=== PATIENT | female | born 1960 | race Caucasian/White ===

== ENCOUNTER → 2018-09-04 | Outpatient (CLI) | payer OTHER ==
[~2018-09-04] MED LIST: AMBIEN10 M1 PO; AUGMENTIN 875 M1 TAB PO; BETASERON 0.3 M1 KIT MR; CARISOPRODOL350 MG PO; CLARITIN10 MG PO; CYMBALTA60 M1 PO; EXCEDRIN 250 MG1 TA1 PO; FLONASE0.05 MG/AC NS; LORATADINE10 M1 PO; MEDROL DOSEPAK4 MG PO; PERCOCET 325 MG1 TA5 PO; PROVIGIL100 MG PO; ROBAXIN750 MG PO; SINGULAIR10 MG PO; SYMBICORT1 AE1 IH; VALIUM10 MG PO; VENTOLIN H0.09 MG/AC IH; [UNRECOGNIZED DRUG - OTHER] PO
== END | disposition home or self-care (01) ==
LOC: RESCLI 01:37
DX: J44.9 Chronic obstructive pulmonary disease, unspecified (principal); G35 Multiple sclerosis; G89.4 Chronic pain syndrome; K21.9 Gastro-esophageal reflux disease without esophagitis; F17.210 Nicotine dependence, cigarettes, uncomplicated; Z71.6 Tobacco abuse counseling; Z76.89 Persons encountering health services in other specified circumstances; Z88.8 Allergy status to other drugs, medicaments and biological substances; Z79.899 Other long term (current) drug therapy

== ENCOUNTER 2018-09-30 14:52 | Emergency (ER) | payer OTHER ==
[~2018-09-30] VITALS: Ht 170.1 cm; Wt 54.4 kg
== END 2018-09-30 16:56 | disposition home or self-care (01) ==
LOC: ED 14:52
DX: S86.912A Strain of unspecified muscle(s) and tendon(s) at lower leg level, left leg, initial encounter (principal); G89.29 Other chronic pain; Z79.899 Other long term (current) drug therapy; Z90.710 Acquired absence of both cervix and uterus; X50.3XXA Overexertion from repetitive movements, initial encounter; Y93.68 Activity, volleyball (beach) (court); Y92.89 Other specified places as the place of occurrence of the external cause; Y99.8 Other external cause status

== ENCOUNTER → 2018-10-09 | Outpatient (CLI) | payer OTHER ==
[2018-10-09 16:00] LABS: BASO # 0.1 10*3/uL (0.0-0.1); BASO % 1.4 % (0.0-1.0); EOS # 0.1 10*3/uL (0.0-0.4); EOS % 1.4 % (1.0-4.0); HEMATOCRIT 39.2 % (37.0-47.0); HEMOGLOBIN 12.8 g/dl (12.0-16.0); LYMPH # 0.9 10*3/uL (1.3-4.4); LYMPH % 18.6 % (27.0-41.0); MEAN CELL VOLUME 99.5 fl (81.0-99.0); MEAN CORPUSCULAR HGB 32.5 pg (27.0-31.0); MEAN CORPUSCULAR HGB CONC 32.7 g/dl (33.0-37.0); MEAN PLATELET VOLUME 8.7 fl (9.6-12.3); MONO # 0.6 10*3/uL (0.1-1.0); MONO % 11.5 % (3.0-9.0); NEUT # 3.4 10*3/uL (2.3-7.9); NEUT % 66.5 % (47.0-73.0); PLATELET COUNT AUTOMATED 264 10*3/uL (130-400); RED BLOOD COUNT 3.94 10*6/uL (4.10-5.10); RED CELL DISTRI WIDTH 12.7 % (0-14.5); WHITE BLOOD COUNT 5.1 10*3/uL (4.8-10.8)
[2018-10-09 16:36] LABS: ALBUMIN 3.9 gm/dl (3.1-4.5); ALKALINE PHOSPHATASE 111 U/L (45-117); BUN 7 mg/dl (7-24); CHLORIDE 100 mmol/L (98-107); CHOLESTEROL 166 mg/dL (<200); CREATININE 0.69 mg/dL (0.55-1.02); HDL CHOLESTEROL 76 mg/dl (40-60); LDL CHOLESTEROL 72 mg/dL (9-159); POTASSIUM 3.9 mmol/L (3.5-5.1); SGOT/AST 14 IU/L (3-35); SGPT/ALT 15 U/L (12-78); SODIUM 136 mmol/L (136-145); TOTAL PROTEIN 7.4 gm/dL (6.4-8.2); TRIGLYCERIDES 89 mg/dl (<150); VLDL CHOLESTEROL 18 mg/dL (6-40)
[2018-10-09 16:57] LABS: VITAMIN D, 25-HYDROXY 14.8 ng/mL (30-100)
== END | disposition home or self-care (01) ==
LOC: RESCLI 01:25
PROVIDERS: Internal Medicine
DX: G35 Multiple sclerosis (principal); J44.9 Chronic obstructive pulmonary disease, unspecified; K21.9 Gastro-esophageal reflux disease without esophagitis; G89.4 Chronic pain syndrome; F17.210 Nicotine dependence, cigarettes, uncomplicated; M25.562 Pain in left knee; Z71.6 Tobacco abuse counseling; Z76.89 Persons encountering health services in other specified circumstances; Z79.899 Other long term (current) drug therapy; Z88.8 Allergy status to other drugs, medicaments and biological substances

== ENCOUNTER → 2019-02-26 | Outpatient (CLI) | payer OTHER | END | disposition home or self-care (01) | LOC: RESCLI 00:47 | DX: K21.9 Gastro-esophageal reflux disease without esophagitis (principal); J44.9 Chronic obstructive pulmonary disease, unspecified; G35 Multiple sclerosis; G89.4 Chronic pain syndrome; E55.9 Vitamin D deficiency, unspecified; J30.2 Other seasonal allergic rhinitis; B02.9 Zoster without complications; K59.00 Constipation, unspecified; R63.6 Underweight; F17.200 Nicotine dependence, unspecified, uncomplicated; Z79.899 Other long term (current) drug therapy; Z88.8 Allergy status to other drugs, medicaments and biological substances ==

== ENCOUNTER 2019-05-03 13:03 | Emergency (ER) | payer OTHER ==
[~2019-05-03] VITALS: Ht 170.1 cm; Wt 54.4 kg
[2019-05-03] MEDS ORDERED: NORCO 5-325 TA1 EACH PO (16:43)
== END 2019-05-03 20:08 | disposition home or self-care (01) ==
LOC: ED 13:03
DX: S42.202A Unspecified fracture of upper end of left humerus, initial encounter for closed fracture (principal); G35 Multiple sclerosis; Z79.899 Other long term (current) drug therapy; W18.39XA Other fall on same level, initial encounter; Y93.89 Activity, other specified; Y92.89 Other specified places as the place of occurrence of the external cause; Y99.8 Other external cause status

== ENCOUNTER → 2019-05-05 | Outpatient (CLI) | payer OTHER ==
[~2019-05-05] MED LIST changes: +NORCO 5-325 TA1 EACH PO
== END | disposition home or self-care (01) ==
LOC: RESCLI 14:03
DX: S42.292D Other displaced fracture of upper end of left humerus, subsequent encounter for fracture with routine healing (principal); J44.9 Chronic obstructive pulmonary disease, unspecified; G89.4 Chronic pain syndrome; K21.9 Gastro-esophageal reflux disease without esophagitis; E55.9 Vitamin D deficiency, unspecified; J30.2 Other seasonal allergic rhinitis; K59.00 Constipation, unspecified; G35 Multiple sclerosis; Z79.899 Other long term (current) drug therapy; Z90.710 Acquired absence of both cervix and uterus; X58.XXXD Exposure to other specified factors, subsequent encounter

== ENCOUNTER → 2020-03-03 | Outpatient (CLI) | payer OTHER | END | disposition home or self-care (01) | LOC: RESCLI 02:10 | PROVIDERS: ATTEND Internal Medicine | DX: J44.9 Chronic obstructive pulmonary disease, unspecified (principal); K21.9 Gastro-esophageal reflux disease without esophagitis; E55.9 Vitamin D deficiency, unspecified; J30.2 Other seasonal allergic rhinitis; Z79.899 Other long term (current) drug therapy; Z90.710 Acquired absence of both cervix and uterus ==

== ENCOUNTER → 2020-07-10 | Outpatient (CLI) | payer OTHER ==
[2020-07-10 16:03] LABS: BASO # 0.1 10*3/uL (0.0-0.1); BASO % 1.3 % (0.0-1.0); EOS # 0.1 10*3/uL (0.0-0.4); EOS % 1.5 % (1.0-4.0); HEMATOCRIT 39.2 % (37.0-47.0); LYMPH # 0.9 10*3/uL (1.3-4.4); LYMPH % 19.7 % (27.0-41.0); MEAN CELL VOLUME 96.1 fl (81.0-99.0); MEAN CORPUSCULAR HGB 31.6 pg (27.0-31.0); MEAN CORPUSCULAR HGB CONC 32.9 g/dl (33.0-37.0); MEAN PLATELET VOLUME 8.8 fl (9.6-12.3); MONO # 0.6 10*3/uL (0.1-1.0); NEUT % 65.1 % (47.0-73.0); PLATELET COUNT AUTOMATED 257 10*3/uL (130-400); RED BLOOD COUNT 4.08 10*6/uL (4.10-5.10); RED CELL DISTRI WIDTH 12.8 % (0-14.5); WHITE BLOOD COUNT 4.7 10*3/uL (4.8-10.8)
[2020-07-10 16:34] LABS: ALBUMIN 4.4 gm/dl (3.1-4.5); BUN 7 mg/dl (7-24); CHLORIDE 98 mmol/L (98-107); CREATININE 0.62 mg/dL (0.55-1.02); POTASSIUM 4.2 mmol/L (3.5-5.1); SGOT/AST 9 IU/L (3-35); SGPT/ALT 17 U/L (12-78); SODIUM 132 mmol/L (136-145); TOTAL PROTEIN 7.7 gm/dL (6.4-8.2)
[2020-07-10 16:35] LABS: ALKALINE PHOSPHATASE 78 U/L (45-117)
== END | disposition home or self-care (01) ==
LOC: RESCLI 00:39
PROVIDERS: Internal Medicine; ATTEND Internal Medicine Nephrology
DX: G89.4 Chronic pain syndrome (principal); K21.9 Gastro-esophageal reflux disease without esophagitis; K59.00 Constipation, unspecified; G35 Multiple sclerosis; J44.9 Chronic obstructive pulmonary disease, unspecified; E55.9 Vitamin D deficiency, unspecified; J30.2 Other seasonal allergic rhinitis; F17.210 Nicotine dependence, cigarettes, uncomplicated; Z11.59 Encounter for screening for other viral diseases; Z71.6 Tobacco abuse counseling; Z79.899 Other long term (current) drug therapy; Z98.890 Other specified postprocedural states

== ENCOUNTER → 2020-09-20 | Outpatient (CLI) | payer OTHER | END | disposition home or self-care (01) | LOC: RESCLI 02:20 | PROVIDERS: ATTEND Internal Medicine | DX: G35 Multiple sclerosis (principal); J44.9 Chronic obstructive pulmonary disease, unspecified; G89.4 Chronic pain syndrome; K21.9 Gastro-esophageal reflux disease without esophagitis; F17.210 Nicotine dependence, cigarettes, uncomplicated; E55.9 Vitamin D deficiency, unspecified; J30.2 Other seasonal allergic rhinitis; K59.00 Constipation, unspecified; Z79.899 Other long term (current) drug therapy; Z90.710 Acquired absence of both cervix and uterus; Z98.890 Other specified postprocedural states ==

== ENCOUNTER 2020-11-18 16:52 | Emergency (ER) | payer OTHER ==
[~2020-11-18] VITALS: Wt 54.4 kg
== END 2020-11-18 20:30 | disposition home or self-care (01) ==
LOC: ED 16:52
DX: S93.401A Sprain of unspecified ligament of right ankle, initial encounter (principal); S80.11XA Contusion of right lower leg, initial encounter; Z79.899 Other long term (current) drug therapy; Z79.82 Long term (current) use of aspirin; Z90.711 Acquired absence of uterus with remaining cervical stump; X50.1XXA Overexertion from prolonged static or awkward postures, initial encounter; Y93.89 Activity, other specified; Y92.89 Other specified places as the place of occurrence of the external cause; Y99.8 Other external cause status

== ENCOUNTER → 2020-11-27 | Outpatient (CLI) | payer OTHER | END | disposition home or self-care (01) | LOC: US 15:29 | PROVIDERS: ATTEND Orthopaedic Surgery | DX: S42.202A Unspecified fracture of upper end of left humerus, initial encounter for closed fracture (principal); M79.661 Pain in right lower leg; R59.0 Localized enlarged lymph nodes; M65.861 Other synovitis and tenosynovitis, right lower leg; X58.XXXA Exposure to other specified factors, initial encounter; Y93.89 Activity, other specified; Y92.89 Other specified places as the place of occurrence of the external cause; Y99.8 Other external cause status ==

== ENCOUNTER → 2020-12-12 | Outpatient (CLI) | payer OTHER | END | disposition home or self-care (01) | LOC: RESCLI 01:07 | PROVIDERS: ATTEND Internal Medicine | DX: G35 Multiple sclerosis (principal); J44.9 Chronic obstructive pulmonary disease, unspecified; G89.4 Chronic pain syndrome; K21.9 Gastro-esophageal reflux disease without esophagitis; F17.210 Nicotine dependence, cigarettes, uncomplicated; E55.9 Vitamin D deficiency, unspecified; J30.2 Other seasonal allergic rhinitis; K59.00 Constipation, unspecified; M81.0 Age-related osteoporosis without current pathological fracture; K08.9 Disorder of teeth and supporting structures, unspecified; R22.42 Localized swelling, mass and lump, left lower limb; Z79.899 Other long term (current) drug therapy; Z90.710 Acquired absence of both cervix and uterus; Z98.890 Other specified postprocedural states ==

== ENCOUNTER → 2020-12-27 | Outpatient (CLI) | payer OTHER | END | disposition home or self-care (01) | LOC: US 10:30 | PROVIDERS: ATTEND Orthopaedic Surgery | DX: I70.203 Unspecified atherosclerosis of native arteries of extremities, bilateral legs (principal); M79.661 Pain in right lower leg; M79.662 Pain in left lower leg ==

== ENCOUNTER → 2021-01-23 | Outpatient (CLI) | payer OTHER | END | disposition home or self-care (01) | LOC: COVID19 15:19 | PROVIDERS: ATTEND Internal Medicine | DX: Z11.52 Encounter for screening for COVID-19 (principal) ==

== ENCOUNTER → 2021-01-24 | Outpatient (CLI) | payer OTHER | END | disposition home or self-care (01) | LOC: RESCLI 06:42 | PROVIDERS: ATTEND Student in an Organized Health Care Education/Training Program | DX: R09.81 Nasal congestion (principal); E55.9 Vitamin D deficiency, unspecified; J30.2 Other seasonal allergic rhinitis; J44.9 Chronic obstructive pulmonary disease, unspecified; G35 Multiple sclerosis; G89.4 Chronic pain syndrome; K21.9 Gastro-esophageal reflux disease without esophagitis; M81.0 Age-related osteoporosis without current pathological fracture; K59.00 Constipation, unspecified; J01.90 Acute sinusitis, unspecified; Z79.899 Other long term (current) drug therapy ==

== ENCOUNTER → 2021-05-04 | Outpatient (CLI) | payer OTHER | END | disposition home or self-care (01) | LOC: COVID19 16:18 | PROVIDERS: ATTEND Family Medicine | DX: Z11.52 Encounter for screening for COVID-19 (principal) ==

== ENCOUNTER → 2021-06-19 | Outpatient (CLI) | payer OTHER ==
[2021-06-19 16:07] LABS: BASO # 0.1 10*3/uL (0.0-0.1); EOS # 0.1 10*3/uL (0.0-0.4); EOS % 1.9 % (1.0-4.0); HEMATOCRIT 39.3 % (37.0-47.0); MEAN CELL VOLUME 91.8 fl (81.0-99.0); MEAN CORPUSCULAR HGB 30.8 pg (27.0-31.0); MEAN CORPUSCULAR HGB CONC 33.6 g/dl (33.0-37.0); MEAN PLATELET VOLUME 8.6 fl (9.6-12.3); MONO # 0.7 10*3/uL (0.1-1.0); MONO % 10.1 % (3.0-9.0); NEUT # 5.3 10*3/uL (2.3-7.9); NEUT % 72.5 % (47.0-73.0); PLATELET COUNT AUTOMATED 294 10*3/uL (130-400); RED BLOOD COUNT 4.28 10*6/uL (4.10-5.10); RED CELL DISTRI WIDTH 13.8 % (0-14.5); WHITE BLOOD COUNT 7.3 10*3/uL (4.8-10.8)
[2021-06-19 16:26] LABS: ALKALINE PHOSPHATASE 64 U/L (45-117); BUN 12 mg/dl (7-24); CHLORIDE 103 mmol/L (98-107); CREATININE 0.55 mg/dL (0.55-1.02); POTASSIUM 3.8 mmol/L (3.5-5.1); SGOT/AST 14 IU/L (3-35); SGPT/ALT 18 U/L (12-78); SODIUM 135 mmol/L (136-145)
== END | disposition home or self-care (01) ==
LOC: RESCLI 00:28 → LAB 00:28 → RESCLI 06:58
PROVIDERS: Internal Medicine; ATTEND Internal Medicine
DX: G35 Multiple sclerosis (principal); M81.0 Age-related osteoporosis without current pathological fracture; M79.672 Pain in left foot; K59.00 Constipation, unspecified; G89.4 Chronic pain syndrome; J45.909 Unspecified asthma, uncomplicated; J44.9 Chronic obstructive pulmonary disease, unspecified; K21.9 Gastro-esophageal reflux disease without esophagitis; J30.2 Other seasonal allergic rhinitis; Z79.899 Other long term (current) drug therapy; Z90.710 Acquired absence of both cervix and uterus

== ENCOUNTER 2021-07-31 23:42 | Emergency (ER) | payer OTHER ==
[~2021-07-31] VITALS: Ht 170.1 cm; Wt 68.0 kg
[2021-08-01] MEDS ORDERED: AMOXICILLIN500 M2 PO (01:07)
== END 2021-08-01 01:33 | disposition home or self-care (01) ==
LOC: ED 23:42
DX: K04.7 Periapical abscess without sinus (principal); Z79.899 Other long term (current) drug therapy; Z90.710 Acquired absence of both cervix and uterus

== ENCOUNTER → 2021-08-13 | Outpatient (CLI) | payer OTHER ==
[~2021-08-13] MED LIST changes: +AMOXICILLIN500 M2 PO
[2021-08-13 15:18] LABS: BUN 10 mg/dl (7-24); CHLORIDE 102 mmol/L (98-107); CREATININE 0.56 mg/dL (0.55-1.02); SODIUM 135 mmol/L (136-145)
== END | disposition home or self-care (01) ==
LOC: LAB 14:34
PROVIDERS: ATTEND Internal Medicine
DX: Z79.899 Other long term (current) drug therapy (principal)

== ENCOUNTER → 2021-09-25 | Outpatient (CLI) | payer OTHER | END | disposition home or self-care (01) | LOC: RESCLI 09-24 04:55 | PROVIDERS: ATTEND Internal Medicine | DX: G89.4 Chronic pain syndrome (principal); M81.0 Age-related osteoporosis without current pathological fracture; J44.9 Chronic obstructive pulmonary disease, unspecified; J30.2 Other seasonal allergic rhinitis; G35 Multiple sclerosis; K59.00 Constipation, unspecified; Z79.899 Other long term (current) drug therapy; Z90.710 Acquired absence of both cervix and uterus ==

== ENCOUNTER 2022-02-11 12:12 | Emergency (ER) | payer OTHER ==
[~2022-02-11] VITALS: Wt 53.1 kg
[2022-02-11 13:51] LABS: BASO # 0.1 10*3/uL (0.0-0.1); BASO % 0.8 % (0.0-1.0); EOS # 0.1 10*3/uL (0.0-0.4); EOS % 1.8 % (1.0-4.0); HEMATOCRIT 41.9 % (37.0-47.0); LYMPH # 0.9 10*3/uL (1.3-4.4); LYMPH % 12.5 % (27.0-41.0); MEAN CELL VOLUME 95.2 fl (81.0-99.0); MEAN CORPUSCULAR HGB CONC 33.7 g/dl (33.0-37.0); MEAN PLATELET VOLUME 8.6 fl (9.6-12.3); MONO # 0.7 10*3/uL (0.1-1.0); MONO % 9.6 % (3.0-9.0); NEUT # 5.5 10*3/uL (2.3-7.9); NEUT % 74.6 % (47.0-73.0); PLATELET COUNT AUTOMATED 242 10*3/uL (130-400); RED CELL DISTRI WIDTH 13.7 % (0-14.5); WHITE BLOOD COUNT 7.4 10*3/uL (4.8-10.8)
[2022-02-11 13:54] LABS: BILIRUBIN Negative (Negative); BLOOD 2+ (Negative); CLARITY Clear (Clear); COLOR Yellow (Yellow); GLUCOSE Negative (Negative); KETONE Negative (Negative); LEUKO ESTERASE Negative (Negative); NITRITE Negative (Negative); SPECIFIC GRAVITY <= 1.005 (1.001-1.030); UROBILINOGEN 0.2 E.U./dl (0.0-1.0)
[2022-02-11 14:08] LABS: ALKALINE PHOSPHATASE 56 U/L (45-117); BUN 7 mg/dl (7-24); CHLORIDE 99 mmol/L (98-107); CREATININE 0.63 mg/dL (0.55-1.02); LIPASE 184 U/L (73-393); POTASSIUM 4.1 mmol/L (3.5-5.1); SGOT/AST 11 IU/L (3-35); SGPT/ALT 17 U/L (12-78); SODIUM 133 mmol/L (136-145); TOTAL PROTEIN 7.1 gm/dL (6.4-8.2)
[2022-02-11 14:09] LABS: ACT PARTIAL THROMBO TIME 27.6 SECONDS (20.0-32.1); INTERNATIONAL NORM RATIO 0.9 (2.0-3.5)
[2022-02-11 14:11] LABS: BACTERIA 1+; RBC 16-20 rbc/hpf (0-2); WBC 0-2 wbc/hpf (0-5)
== END 2022-02-11 18:27 | disposition home or self-care (01) ==
LOC: ED 12:12
PROVIDERS: Emergency Medicine
DX: J06.9 Acute upper respiratory infection, unspecified (principal); Z79.899 Other long term (current) drug therapy; Z90.710 Acquired absence of both cervix and uterus

== ENCOUNTER 2024-07-24 14:46 | Inpatient (IN) | payer OTHER ==
[2024-07-24] VITALS: BP 89/53
[~2024-07-24] VITALS: Ht 167.6 cm; Wt 41.5 kg
[2024-07-24] MEDS ORDERED: Acetaminophen/Hydrocodone 5 MG/325 MG TABLET PO ONE (14:55)
[2024-07-24 15:03] VITALS: BP 95/40
[2024-07-24 15:14] LABS: BASO % 0.5 % (0.0-1.0); HEMATOCRIT 36.9 % (37.0-47.0); MEAN CELL VOLUME 99.7 fl (81.0-99.0); MEAN CORPUSCULAR HGB 33.2 pg (27.0-31.0); MEAN CORPUSCULAR HGB CONC 33.3 g/dl (33.0-37.0); MEAN PLATELET VOLUME 8.9 fl (9.6-12.3); MONO # 1.2 10*3/uL (0.1-1.0); MONO % 13.2 % (3.0-9.0); NEUT # 6.7 10*3/uL (2.3-7.9); NEUT % 77.3 % (47.0-73.0); PLATELET COUNT AUTOMATED 214 10*3/uL (130-400); RED CELL DISTRI WIDTH 12.3 % (0-14.5); WHITE BLOOD COUNT 8.7 10*3/uL (4.8-10.8)
[2024-07-24] MEDS ORDERED: GABAPENTIN100 M2 PO (15:16)
[2024-07-24 15:37] LABS: BUN 10 mg/dl (9-23); CHLORIDE 103 mmol/L (98-107); POTASSIUM 3.5 mmol/L (3.4-5.1)
[2024-07-24 16:31] LABS: BILIRUBIN Negative (Negative); BLOOD 2+ (Negative); CLARITY Cloudy (Clear); COLOR Yellow (Yellow); GLUCOSE Negative (Negative); KETONE Trace (Negative); LEUKO ESTERASE 1+ (Negative); NITRITE Negative (Negative)
[2024-07-24] MEDS ORDERED: SODIUM CHLORIDE 0.9% 1,000 ML IV ONE (16:55)
[2024-07-24] MEDS ORDERED: fentaNYL CITRATE 100 MCG/2 ML VIAL IV ONE (16:55)
[2024-07-24 17:01] LABS: BACTERIA 1+
[2024-07-24] MEDS ORDERED: Magnesium Hydroxide 30 ML UDC PO PRN (17:45)
[2024-07-24] MEDS ORDERED: ACETAMINOPHEN 325 MG TAB PO PRN (17:45)
[2024-07-24] MEDS ORDERED: Acetaminophen/Hydrocodone 5 MG/325 MG TABLET PO PRN (17:45)
[2024-07-24] MEDS ORDERED: Ondansetron Hydrochloride 4 MG/2 ML VIAL IV PRN (17:45)
[2024-07-24] MEDS ORDERED: BISACODYL 5 MG TAB PO PRN (17:45)
[2024-07-24] MEDS ORDERED: ACETAMINOPHEN 650 MG SUPP R PRN (17:45)
[2024-07-24] MEDS ORDERED: BISACODYL 10 MG SUPP R PRN (17:45)
[2024-07-24] MEDS ORDERED: ASPIRIN ENTERIC COATED 81 MG TAB PO SCH (19:05)
[2024-07-24] MEDS ORDERED: ATORVASTATIN CALCIUM 40 MG TABLET PO SCH (19:05)
[2024-07-24] MEDS ORDERED: Nicotine 21 MG PATCH T SCH (19:57)
[2024-07-24 20:00] VITALS: BP 103/64
[2024-07-25] VITALS: BP 86/57
[2024-07-25 05:39] LABS: ALKALINE PHOSPHATASE 41 U/L (46-116); BUN 6 mg/dl (9-23); CHLORIDE 108 mmol/L (98-107); CHOLESTEROL 114 mg/dL (<200); FREE T4 1.02 ng/dl (0.89-1.76); LDL CHOLESTEROL 42 mg/dL (9-159); POTASSIUM 3.8 mmol/L (3.4-5.1); SGPT/ALT 15 U/L (5-49); TOTAL PROTEIN 5.1 gm/dL (6.0-8.0); TRIGLYCERIDES 53 mg/dl (<150)
[2024-07-25 06:09] LABS: BASO # 0.1 10*3/uL (0.0-0.1); BASO % 0.8 % (0.0-1.0); EOS # 0.1 10*3/uL (0.0-0.4); EOS % 1.5 % (1.0-4.0); MEAN CORPUSCULAR HGB 33.2 pg (27.0-31.0); MEAN CORPUSCULAR HGB CONC 32.9 g/dl (33.0-37.0); MEAN PLATELET VOLUME 9.2 fl (9.6-12.3); MONO # 0.9 10*3/uL (0.1-1.0); MONO % 15.3 % (3.0-9.0); NEUT # 3.7 10*3/uL (2.3-7.9); NEUT % 60.6 % (47.0-73.0); PLATELET COUNT AUTOMATED 183 10*3/uL (130-400); RED BLOOD COUNT 3.07 10*6/uL (4.10-5.10); RED CELL DISTRI WIDTH 12.3 % (0-14.5)
[2024-07-25] MEDS ORDERED: TIZANIDINE HCL4 MG PO (07:39)
[2024-07-25 08:00] VITALS: BP 111/70
[2024-07-25] MEDS ORDERED: OXYCODONE-ACET1 EAC3 PO (08:04)
[2024-07-25] MEDS ORDERED: Acetaminophen/Oxycodone 5 MG/325 MG TABLET PO PRN (08:05)
[2024-07-25 08:08] LABS: VITAMIN D, 25-HYDROXY 27.5 ng/mL (30-100)
[2024-07-25 12:00] VITALS: BP 100/57
[2024-07-25] MEDS ORDERED: GABAPENTIN600 MG PO (13:54)
[2024-07-25 16:00] VITALS: BP 101/53
[2024-07-25 20:00] VITALS: BP 115/70
[2024-07-26] VITALS (8 sets, daily range): BP systolic 89–116; BP diastolic 50–68
[2024-07-26 06:41] LABS: BASO % 0.7 % (0.0-1.0); EOS # 0.1 10*3/uL (0.0-0.4); HEMATOCRIT 32.8 % (37.0-47.0); MEAN CELL VOLUME 99.4 fl (81.0-99.0); MEAN CORPUSCULAR HGB 32.7 pg (27.0-31.0); MEAN CORPUSCULAR HGB CONC 32.9 g/dl (33.0-37.0); MEAN PLATELET VOLUME 9.3 fl (9.6-12.3); MONO # 0.7 10*3/uL (0.1-1.0); MONO % 12.5 % (3.0-9.0); NEUT # 4.3 10*3/uL (2.3-7.9); NEUT % 72.6 % (47.0-73.0); PLATELET COUNT AUTOMATED 168 10*3/uL (130-400); RED CELL DISTRI WIDTH 12.1 % (0-14.5); WHITE BLOOD COUNT 5.9 10*3/uL (4.8-10.8)
[2024-07-26] MEDS ORDERED: SODIUM CHLORIDE 0.9% 1,000 ML IV SCH (07:35)
[2024-07-26] MEDS ORDERED: LORazepam 0.5 MG TAB SL ONE (09:25)
[2024-07-26] MEDS ORDERED: fentaNYL CITRATE 100 MCG/2 ML VIAL IV PRN (09:30)
[2024-07-26] MEDS ORDERED: Cholecalciferol 2,000 UNIT TABLET (50 MCG) PO SCH (10:00)
[2024-07-26] MEDS ORDERED: CEFAZOLIN SODIUM 2 GM IV ONE (15:00)
[2024-07-26] MEDS ORDERED: ceFAZolin sodium 2GM/20ML IV ONE (15:00)
[2024-07-26] MEDS ORDERED: TRANEXAMIC ACID IN NACL,ISO-OS 100 ML IV ONE ×2 (15:00→15:08)
[2024-07-26] MEDS ORDERED: ceFAZolin sodium/sodium chlor 20 ML IV ONE (15:08)
[2024-07-26] MEDS ORDERED: Ropivacaine Hydrochloride 5 MG/ML 20 ML AMP IJ ONE (17:47)
[2024-07-26] MEDS ORDERED: ACETAMINOPHEN 50 ML IV ONE (17:47)
[2024-07-26] MEDS ORDERED: Bupivacaine Hydrochloride/Ep2 30 ML VIAL ONE (17:57)
[2024-07-26] MEDS ORDERED: Lactated Ringer's Solution 500 ML IV ONE ×2 (18:06→20:29)
[2024-07-26] MEDS ORDERED: Lactated Ringer's Solution 1,000 ML IV ONE (18:57)
[2024-07-26] MEDS ORDERED: HYDROmorphONE Hydrochloride 0.5 MG/0.5 ML SYRINGE IV PRN (21:30)
[2024-07-26] MEDS ORDERED: ceFAZolin sodium 1 GM in SYRINGE INFUSION 10 ML IV SCH (22:00)
[2024-07-26] MEDS ORDERED: Nicotine 21 MG PATCH T SCH (22:00)
[2024-07-26] MEDS ORDERED: HYDROmorphONE Hydrochloride 0.5 MG/0.5 ML SYRINGE ONE (22:04)
[2024-07-26] MEDS ORDERED: Phenylephrine Hydrochloride 1 MG/10 ML SYRINGE IV ONE (22:08)
[2024-07-26] MEDS ORDERED: ROCURONIUM BROMIDE 50 MG/5 ML SYRINGE IV ONE (22:08)
[2024-07-26] MEDS ORDERED: Midazolam Hydrochloride 2 MG/2 ML VIAL IV ONE (22:08)
[2024-07-26] MEDS ORDERED: Dexamethasone Sodium Phospha 4 MG/ML VIAL IV ONE (22:08)
[2024-07-26] MEDS ORDERED: SEVOFLURANE 250 ML BOT INH ONE (22:08)
[2024-07-26] MEDS ORDERED: fentaNYL CITRATE 100 MCG/2 ML VIAL IV ONE (22:08)
[2024-07-26] MEDS ORDERED: Ondansetron Hydrochloride 4 MG/2 ML VIAL IV ONE (22:08)
[2024-07-26] MEDS ORDERED: ePHEDrine Sulfate 25 MG/5 ML SYRINGE IV ONE (22:08)
[2024-07-26] MEDS ORDERED: PROPOFOL 200 MG/20 ML VIAL IV ONE (22:08)
[2024-07-27] VITALS: BP 102/59
[2024-07-27] MEDS ORDERED: Ketorolac Tromethamine 15 MG/ML VIAL IV ONE ×2 (00:45→06:00)
[2024-07-27] MEDS ORDERED: ceFAZolin sodium 1 GM in SYRINGE INFUSION 10 ML IV SCH (02:00)
[2024-07-27 06:08] LABS: BASO % 0.1 % (0.0-1.0); HEMATOCRIT 27.7 % (37.0-47.0); MEAN CELL VOLUME 99.3 fl (81.0-99.0); MEAN CORPUSCULAR HGB 33.7 pg (27.0-31.0); MEAN CORPUSCULAR HGB CONC 33.9 g/dl (33.0-37.0); MEAN PLATELET VOLUME 9.3 fl (9.6-12.3); MONO # 0.8 10*3/uL (0.1-1.0); MONO % 8.9 % (3.0-9.0); NEUT # 7.7 10*3/uL (2.3-7.9); NEUT % 84.1 % (47.0-73.0); PLATELET COUNT AUTOMATED 179 10*3/uL (130-400); RED BLOOD COUNT 2.79 10*6/uL (4.10-5.10); RED CELL DISTRI WIDTH 11.9 % (0-14.5); WHITE BLOOD COUNT 9.1 10*3/uL (4.8-10.8)
[2024-07-27 06:30] LABS: BUN 7 mg/dl (9-23); CHLORIDE 106 mmol/L (98-107); POTASSIUM 4.1 mmol/L (3.4-5.1)
[2024-07-27 08:00] VITALS: BP 142/63; BP 96/61
[2024-07-27 12:00] VITALS: BP 123/68
[2024-07-27] MEDS ORDERED: Ketorolac Tromethamine 15 MG/ML VIAL IV SCH (14:00)
[2024-07-27 16:00] VITALS: BP 100/50
[2024-07-27] MEDS ORDERED: ASPIRIN ENTERIC COATED 81 MG TAB PO SCH (18:00)
[2024-07-27 20:00] VITALS: BP 90/40
[2024-07-28] VITALS: BP 124/66
[2024-07-28 06:31] LABS: BASO % 0.3 % (0.0-1.0); EOS # 0.1 10*3/uL (0.0-0.4); EOS % 0.7 % (1.0-4.0); HEMATOCRIT 26.6 % (37.0-47.0); MEAN CELL VOLUME 99.6 fl (81.0-99.0); MEAN CORPUSCULAR HGB CONC 33.1 g/dl (33.0-37.0); MEAN PLATELET VOLUME 9.4 fl (9.6-12.3); MONO # 0.9 10*3/uL (0.1-1.0); MONO % 12.3 % (3.0-9.0); NEUT # 5.9 10*3/uL (2.3-7.9); NEUT % 78.6 % (47.0-73.0); PLATELET COUNT AUTOMATED 195 10*3/uL (130-400); RED BLOOD COUNT 2.67 10*6/uL (4.10-5.10); RED CELL DISTRI WIDTH 12.2 % (0-14.5); WHITE BLOOD COUNT 7.5 10*3/uL (4.8-10.8)
[2024-07-28 08:00] VITALS: BP 104/71
[2024-07-28] MEDS ORDERED: Technetium Tc 99M Tetrofosmi 0.23 MG KIT IJ SCH (09:40)
[2024-07-28 12:00] VITALS: BP 126/69
[2024-07-28 16:00] VITALS: BP 96/34
[2024-07-28 20:00] VITALS: BP 108/63
[2024-07-29] VITALS: BP 115/62
[2024-07-29 06:22] LABS: BASO % 0.7 % (0.0-1.0); EOS # 0.1 10*3/uL (0.0-0.4); EOS % 1.3 % (1.0-4.0); HEMATOCRIT 26.5 % (37.0-47.0); MEAN CELL VOLUME 100.4 fl (81.0-99.0); MEAN CORPUSCULAR HGB 33.3 pg (27.0-31.0); MEAN CORPUSCULAR HGB CONC 33.2 g/dl (33.0-37.0); MEAN PLATELET VOLUME 9.6 fl (9.6-12.3); MONO # 0.8 10*3/uL (0.1-1.0); MONO % 14.8 % (3.0-9.0); NEUT # 3.8 10*3/uL (2.3-7.9); NEUT % 69.9 % (47.0-73.0); PLATELET COUNT AUTOMATED 199 10*3/uL (130-400); RED BLOOD COUNT 2.64 10*6/uL (4.10-5.10); RED CELL DISTRI WIDTH 12.2 % (0-14.5); WHITE BLOOD COUNT 5.5 10*3/uL (4.8-10.8)
[2024-07-29] MEDS ORDERED: Regadenoson 0.4 MG/5 ML SYR IV ONE (06:32)
[2024-07-29 08:00] VITALS: BP 102/62
[2024-07-29 12:00] VITALS: BP 111/58
[2024-07-29 16:00] VITALS: BP 117/71
[2024-07-29 20:00] VITALS: BP 116/72
[2024-07-30] VITALS: BP 125/73
[2024-07-30 08:00] VITALS: BP 117/71
[2024-07-30 12:00] VITALS: BP 117/72
[2024-07-30 14:04] VITALS: BP 109/65
[2024-07-30 16:00] VITALS: BP 113/64
[2024-07-30 20:00] VITALS: BP 109/52
[2024-07-31] VITALS: BP 115/67
[2024-07-31 08:00] VITALS: BP 123/68
[2024-07-31 12:00] VITALS: BP 124/64
[2024-07-31 16:00] VITALS: BP 112/73
[2024-07-31 20:00] VITALS: BP 105/59
[2024-08-01] VITALS: BP 106/69
[2024-08-01 08:00] VITALS: BP 113/63
[2024-08-01] MEDS ORDERED: Acetaminophen/Oxycodone 5 MG/325 MG TABLET PO PRN (08:40)
[2024-08-01 12:00] VITALS: BP 115/66
[2024-08-01 16:00] VITALS: BP 131/70
[2024-08-01 20:00] VITALS: BP 134/60
[2024-08-02] VITALS: BP 134/60
[2024-08-02 08:00] VITALS: BP 123/59
[2024-08-02 12:00] VITALS: BP 116/79
[2024-08-02] MEDS ORDERED: GABAPENTIN 600 MG TAB PO SCH (14:00)
[2024-08-02 16:00] VITALS: BP 111/71
[2024-08-02 20:00] VITALS: BP 126/65
[2024-08-03] VITALS: BP 128/65
[2024-08-03 06:15] LABS: BUN 8 mg/dl (9-23); CHLORIDE 102 mmol/L (98-107); POTASSIUM 3.1 mmol/L (3.4-5.1)
[2024-08-03 06:19] LABS: BASO # 0.1 10*3/uL (0.0-0.1); BASO % 1.2 % (0.0-1.0); EOS # 0.1 10*3/uL (0.0-0.4); EOS % 1.9 % (1.0-4.0); HEMATOCRIT 28.4 % (37.0-47.0); MEAN CELL VOLUME 98.6 fl (81.0-99.0); MEAN CORPUSCULAR HGB 33.3 pg (27.0-31.0); MEAN CORPUSCULAR HGB CONC 33.8 g/dl (33.0-37.0); MEAN PLATELET VOLUME 8.9 fl (9.6-12.3); MONO # 0.9 10*3/uL (0.1-1.0); MONO % 13.3 % (3.0-9.0); NEUT # 4.6 10*3/uL (2.3-7.9); NEUT % 66.1 % (47.0-73.0); PLATELET COUNT AUTOMATED 340 10*3/uL (130-400); RED BLOOD COUNT 2.88 10*6/uL (4.10-5.10); RED CELL DISTRI WIDTH 12.8 % (0-14.5); WHITE BLOOD COUNT 6.9 10*3/uL (4.8-10.8)
[2024-08-03] MEDS ORDERED: POTASSIUM CHLORIDE 20 MEQ TAB PO ONE (07:15)
[2024-08-03 08:00] VITALS: BP 120/64
[2024-08-03 11:54] VITALS: BP 91/55
[2024-08-03 15:40] VITALS: BP 91/50
[2024-08-03 20:00] VITALS: BP 113/70
[2024-08-04] VITALS: BP 107/51
[2024-08-04 06:13] LABS: BASO # 0.1 10*3/uL (0.0-0.1); EOS # 0.1 10*3/uL (0.0-0.4); EOS % 1.9 % (1.0-4.0); HEMATOCRIT 29.5 % (37.0-47.0); MEAN CORPUSCULAR HGB 32.9 pg (27.0-31.0); MEAN CORPUSCULAR HGB CONC 32.5 g/dl (33.0-37.0); MONO # 0.8 10*3/uL (0.1-1.0); MONO % 11.6 % (3.0-9.0); NEUT # 4.9 10*3/uL (2.3-7.9); NEUT % 67.6 % (47.0-73.0); PLATELET COUNT AUTOMATED 348 10*3/uL (130-400); RED BLOOD COUNT 2.92 10*6/uL (4.10-5.10); RED CELL DISTRI WIDTH 13.1 % (0-14.5); WHITE BLOOD COUNT 7.2 10*3/uL (4.8-10.8)
[2024-08-04 06:44] LABS: BUN 8 mg/dl (9-23); CHLORIDE 104 mmol/L (98-107); POTASSIUM 3.4 mmol/L (3.4-5.1)
[2024-08-04 08:00] VITALS: BP 114/56
[2024-08-04 11:57] VITALS: BP 99/50
[2024-08-04 16:00] VITALS: BP 97/45
[2024-08-04 20:00] VITALS: BP 108/50; BP 90/54
[2024-08-05] VITALS: BP 100/52
[2024-08-05 06:16] LABS: BASO # 0.1 10*3/uL (0.0-0.1); BASO % 1.2 % (0.0-1.0); EOS # 0.1 10*3/uL (0.0-0.4); EOS % 2.2 % (1.0-4.0); MEAN CELL VOLUME 101.8 fl (81.0-99.0); MEAN CORPUSCULAR HGB 33.5 pg (27.0-31.0); MEAN CORPUSCULAR HGB CONC 32.9 g/dl (33.0-37.0); MEAN PLATELET VOLUME 9.1 fl (9.6-12.3); MONO # 0.7 10*3/uL (0.1-1.0); MONO % 11.9 % (3.0-9.0); NEUT # 3.2 10*3/uL (2.3-7.9); NEUT % 54.8 % (47.0-73.0); PLATELET COUNT AUTOMATED 336 10*3/uL (130-400); RED BLOOD COUNT 2.75 10*6/uL (4.10-5.10); RED CELL DISTRI WIDTH 13.2 % (0-14.5); WHITE BLOOD COUNT 5.9 10*3/uL (4.8-10.8)
[2024-08-05 06:39] LABS: BUN 9 mg/dl (9-23); CHLORIDE 106 mmol/L (98-107); POTASSIUM 3.5 mmol/L (3.4-5.1)
[2024-08-05 08:00] VITALS: BP 113/58
[2024-08-05 12:00] VITALS: BP 94/53
[2024-08-05 15:25] VITALS: BP 95/65
[2024-08-05 20:00] VITALS: BP 100/50
[2024-08-06] VITALS: BP 113/45
[2024-08-06 06:03] LABS: BASO # 0.1 10*3/uL (0.0-0.1); BASO % 1.3 % (0.0-1.0); EOS # 0.1 10*3/uL (0.0-0.4); HEMATOCRIT 28.4 % (37.0-47.0); MEAN CELL VOLUME 101.1 fl (81.0-99.0); MEAN CORPUSCULAR HGB 32.4 pg (27.0-31.0); MEAN PLATELET VOLUME 9.1 fl (9.6-12.3); MONO # 0.8 10*3/uL (0.1-1.0); MONO % 12.5 % (3.0-9.0); NEUT # 3.8 10*3/uL (2.3-7.9); NEUT % 62.4 % (47.0-73.0); PLATELET COUNT AUTOMATED 320 10*3/uL (130-400); RED BLOOD COUNT 2.81 10*6/uL (4.10-5.10); RED CELL DISTRI WIDTH 13.2 % (0-14.5); WHITE BLOOD COUNT 6.1 10*3/uL (4.8-10.8)
[2024-08-06 06:30] LABS: BUN 9 mg/dl (9-23); CHLORIDE 105 mmol/L (98-107); POTASSIUM 3.6 mmol/L (3.4-5.1)
[2024-08-06 08:00] VITALS: BP 104/63
[2024-08-06 12:00] VITALS: BP 102/54
[2024-08-06] MEDS ORDERED: ASPIRIN ADULT L81 M2 PO (13:08)
[2024-08-06] MEDS ORDERED: OXYCODONE-ACET1 EAC3 PO (13:08)
[2024-08-06] MEDS ORDERED: ATORVASTATIN CA40 M1 PO (13:08)
[2024-08-06] MEDS ORDERED: VITAMIN D350 MCG PO (13:08)
[2024-08-06] MEDS ORDERED: GABAPENTIN600 MG PO (13:08)
[2024-08-06 16:00] VITALS: BP 91/66
== END 2024-08-06 17:18 | DRG 313 ==
LOC: ED 14:46 → EDHOLD 17:12 → 4E 17:12
PROVIDERS: Internal Medicine; Orthopaedic Surgery; Physician Assistant Medical; Student in an Organized Health Care Education/Training Program; ADMIT Internal Medicine; ATTEND Internal Medicine
PROC: 2W3MX1Z Immobilization of Left Lower Extremity using Splint (ICD-10-PCS; 2024-07-24)
PROC: 0SP Lower Joints, Removal (ICD-10-PCS; principal; 2024-07-26)
PROC: 0QHG34Z Insertion of Internal Fixation Device into Right Tibia, Percutaneous Approach (ICD-10-PCS; 2024-07-26)
PROC: 3E0T3BZ Introduction of Anesthetic Agent into Peripheral Nerves and Plexi, Percutaneous Approach (ICD-10-PCS; 2024-07-26)
PROC: 4A02XM4 Measurement of Cardiac Total Activity, External Approach (ICD-10-PCS; 2024-07-29)
PROC: 3E073KZ Introduction of Other Diagnostic Substance into Coronary Artery, Percutaneous Approach (ICD-10-PCS; 2024-07-29)
DX: S82.244A Nondisplaced spiral fracture of shaft of right tibia, initial encounter for closed fracture (principal); M80.061A Age-related osteoporosis with current pathological fracture, right lower leg, initial encounter for fracture; R26.2 Difficulty in walking, not elsewhere classified; I21.4 Non-ST elevation (NSTEMI) myocardial infarction; N17.0 Acute kidney failure with tubular necrosis; I95.9 Hypotension, unspecified; Z66 Do not resuscitate; E44.0 Moderate protein-calorie malnutrition; G35 Multiple sclerosis; G62.9 Polyneuropathy, unspecified; D53.9 Nutritional anemia, unspecified; F17.210 Nicotine dependence, cigarettes, uncomplicated; S82.491A Other fracture of shaft of right fibula, initial encounter for closed fracture; L84 Corns and callosities; Z96.9 Presence of functional implant, unspecified; G57.31 Lesion of lateral popliteal nerve, right lower limb; R73.9 Hyperglycemia, unspecified; E87.1 Hypo-osmolality and hyponatremia; Z82.49 Family history of ischemic heart disease and other diseases of the circulatory system; Z79.899 Other long term (current) drug therapy; Z82.0 Family history of epilepsy and other diseases of the nervous system; Z79.1 Long term (current) use of non-steroidal anti-inflammatories (NSAID); Z51.5 Encounter for palliative care; Z79.82 Long term (current) use of aspirin; Z71.6 Tobacco abuse counseling; Z68.1 Body mass index [BMI] 19.9 or less, adult

== ENCOUNTER → 2024-09-06 | Outpatient (CLI) | payer OTHER ==
[~2024-09-06] MED LIST changes: +ASPIRIN ADULT L81 M2 PO; +ATORVASTATIN CA40 M1 PO; +GABAPENTIN100 M2 PO; +GABAPENTIN600 MG PO; +OXYCODONE-ACET1 EAC3 PO; +TIZANIDINE HCL4 MG PO; +VITAMIN D350 MCG PO
== END | disposition home or self-care (01) ==
LOC: ORTHO 00:45
PROVIDERS: ATTEND Orthopaedic Surgery
DX: S82.831A Other fracture of upper and lower end of right fibula, initial encounter for closed fracture (principal); M80.061A Age-related osteoporosis with current pathological fracture, right lower leg, initial encounter for fracture; X58.XXXD Exposure to other specified factors, subsequent encounter

== ENCOUNTER → 2024-09-14 | Outpatient (CLI) | payer OTHER | END | disposition home or self-care (01) | LOC: RESCLI 03:53 | PROVIDERS: ATTEND Internal Medicine | DX: M81.0 Age-related osteoporosis without current pathological fracture (principal); I25.10 Atherosclerotic heart disease of native coronary artery without angina pectoris; E78.5 Hyperlipidemia, unspecified; G89.4 Chronic pain syndrome; E56.9 Vitamin deficiency, unspecified; J01.90 Acute sinusitis, unspecified; K59.00 Constipation, unspecified; J44.9 Chronic obstructive pulmonary disease, unspecified; Z79.899 Other long term (current) drug therapy; Z98.890 Other specified postprocedural states; Z79.82 Long term (current) use of aspirin ==